=== PATIENT | female | born 1990 | race Hispanic/Latino ===

== ENCOUNTER 2021-01-04 15:07 | Emergency (ER) | payer OTHER, SELFPAY ==
[~2021-01-04] VITALS: Ht 144.8 cm; Wt 65.8 kg
[2021-01-04] MEDS ORDERED: ACET-3194 PO (15:58)
[2021-01-04] MEDS ORDERED: GUAI5SYR4 PO (15:58)
[2021-01-04] MEDS ORDERED: PSEU120T62 PO (15:58)
[2021-01-04] MEDS ORDERED: AZIT250T9 PO (15:58)
[2021-01-04] MEDS ORDERED: IBUP-2070 PO (15:58)
[2021-01-04 17:03] VITALS: BP 123/80
== END 2021-01-04 17:06 | disposition home or self-care (01) ==
LOC: EDH 15:07
DX: U07.1 COVID-19 (principal); Z79.1 Long term (current) use of non-steroidal anti-inflammatories (NSAID)
CPT/HCPCS: 71045; 87635; 87804 ×2; 99284; C9803